=== PATIENT | male | born 1960 | race African-American/Black ===

== ENCOUNTER 2017-01-14 03:24 | Observation (INO) | payer OTHER ==
[~2017-01-14] VITALS: Ht 165.1 cm; Wt 97.3 kg
--- NOTE | ~2017-01-14 | DS ---
Discharge Summary [address] [address] [place]. [address] NAME: GABRIELLA KHAN : 60 STATUS : DIS Elvira PAT#: [id number] AGE: 56 ADM/REG DATE : 01/14/17 MR#: [id number] REPORT SERV DATE: 01/16/17 DICTATED BY: JOSE BORGES DATE: 01/16/17 REPORT STATUS : Draft TRANSCRIBED BY: SERGEY DATE: 01/16/17 ADMISSION DATE: 01/14/2017 DISCHARGE DATE: 01/16/2017 DISCHARGE DIAGNOSES: 1. Acute pancreatitis, urinary tract infection due to Escherichia coli. 2. 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 3. Insulin-treated diabetes mellitus type 2. 4. Obesity. 5. Remote history of cerebrovascular aneurysm. 6. History of cervical stenosis. IMAGING: Gallbladder ultrasound, minimal hepatic and meningioma. Otherwise, negative ultrasound exam of the gallbladder. HISTORY OF PRESENT ILLNESS: For detailed HPI, make reference to Dr. Manfred Gil's dictation on 01/14/2017. In brief, this is a 56-year-old male with medical history of hypertension, cerebrovascular accident, dysarthria due to late effect of CVA, who presented to the emergency department with complaints of worsening nausea, vomiting, and abdominal pain. Vital signs on presentation, blood pressure was 176/94, heart rate was 70, respiratory rate was 20, oxygen saturation 80% on room air. Physical exam noted for epigastric tenderness. No guarding. No rebound. Laboratory data: Lipase 1390, creatinine 1.20, BUN 14, glucose 225. UA, positive leukocyte esterase and wbc present, occasional bacteria noted. Hemoglobin 13.6, hematocrit 39.6, white blood cell 9.2. An assessment of acute pancreatitis and urinary tract infection were made in the ER. The patient was admitted to the Hospitalist Service. HOSPITAL COURSE: 1. Acute pancreatitis. The patient was started on gentle IV fluid, pain control, and clear liquid diet as tolerated. The patient's abdominal pain improved. An ultrasound of the abdomen was done, showed no evidence of gallstones. The patient's liver enzyme was essentially within normal limits. The patient's nausea, vomiting, and abdominal pain continued to improve. The patient's diet was advanced to regular diet and tolerated it without any significant abdominal pain. No nausea or vomiting. The patient was subsequently discharged. Follow up with primary care physician. The definitive etiology of acute pancreatitis not identified in this hospitalization. Serum calcium was essentially normal. Triglyceride was also normal. Possible suspicion includes idiopathic acute pancreatitis versus possible medication-induced (hydrochlorothiazide). Hydrochlorothiazide has now been discontinued. The patient was advised to continue just lisinopril for blood pressure control. Discharge Summary [address] [address] NAME: GABRIELLA KHAN : 60 STATUS : DIS Elvira PAT#: [id number] AGE: 56 ADM/REG DATE : 01/14/17 MR#: [id number] REPORT SERV DATE: 01/16/17 DICTATED BY: JOSE BORGES DATE: 01/16/17 REPORT STATUS : Draft TRANSCRIBED BY: SERGEY DATE: 01/16/17 2. Urinary tract infection. He was started on broad-spectrum IV Rocephin. The patient's urine culture grew E coli, sensitive to ceftriaxone. The patient's IV ceftriaxone was discontinued. The patient was switched to Ceftin 250 mg p.o. b.i.d., to continue as an outpatient. 3. Hypertension. The patient's blood pressure medication was changed during this course of this admission. Hydrochlorothiazide was discontinued. The patient was advised to continue lisinopril for blood pressure control. DISCHARGE MEDICATION: 1. Aspirin 325 mg p.o. daily. 2. Lipitor 80 mg p.o. daily. 3. Ceftin 250 mg p.o. b.i.d., to complete for this treatment. 4. Gabapentin 600 mg p.o. b.i.d. 5. Flexeril 10 mg p.o. t.i.d. 6. Lantus insulin 30 units at bedtime. 7. Lisinopril 20 mg p.o. daily. 8. EpiPen injection. 9. Lispro 10 units with meals. 10.Metformin 500 mg p.o. b.i.d. DISCHARGE DISPOSITION: Home. DISCHARGE FOLLOWUP: Follow up with primary care physician as an outpatient. Greater than 30 minutes was used to prepare this patient's discharge, reconcile medication, advise the patient on discharge plans and followup. MARYO/SERGEY Jose Borges MD / [id number] CC: Jose Borges MD
--- NOTE | ~2017-01-14 | HP ---
History And Physical [facility] [facility] [place]. [address] NAME: GABRIELLA KHAN : 60 STATUS : ADM Elvira PAT#: [id number] AGE: 56 ADM/REG DATE : 01/14/17 MR#: [id number] REPORT SERV DATE: 01/14/17 DICTATED BY: IGNACIA BETANCOURT DATE: 01/14/17 REPORT STATUS : Draft TRANSCRIBED BY: MODL DATE: 01/14/17 DATE OF ADMISSION: 01/14/2017 ATTENDING PHYSICIAN: Dr. Morris. REASON FOR ADMISSION: Pancreatitis. HISTORY OF PRESENT ILLNESS: This is a 56-year-old male, who came to the emergency room with abdominal spasm on the right side. Nurse practitioner, Luciana, also reported he is having some back spasm as did Rico MANNING, who evaluated the patient sequentially in the emergency room. Laboratory tests were drawn and he was found have a lipase of 1390 without any nausea or vomiting. He does not take any alcohol. He does have morbid obesity and he is diabetic. His says his blood sugars been falling recently. The patient is withdrawn and will not answer questions and will not arouse except when stimulated to talk. He has assumed a position in the emergency room. The hospitalist service is asked to observe the patient for evidence of serious illness. PAST MEDICAL HISTORY: He was hospitalized with a stroke. Apparently it is on the right side of the brain. Also Neurology thought he may have a cerebellar stroke as well. 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 Archer last Saturday but did not go to the neurosurgical evaluation. He speaks with a speech impediment as answers mostly for him and he remains withdrawn. HOME MEDICATIONS: His home medications are listed as follows: Aspirin 325 p.o. q.a.m.; Lipitor 80 mg p.o. q.a.m.; EpiPen p.r.n. bee stings; Neurontin 600 mg p.o. b.i.d.; Lantus 50 units subcu at bedtime; Humalog insulin 10 units before each meal; Prinzide 20/12.5 one with breakfast and supper; metformin ER 500 mg p.o. b.i.d.; and Naprosyn 220 mg two p.o. b.i.d. p.r.n. pain. ALLERGIES: INCLUDE WASP AND BEE VENOM; LYRICA; AND MAYONNAISE THAT MAKES HIS MUSCLES CRAMP AND LOCK UP. SOCIAL HISTORY: He has two children from previous marriage. Present and he have been for the last full 12 years (the says she feels like it has been a longer time). He does smoke cigarettes but does not admit to this. He gave up drinking any beer or wine or mixed drink after the stroke. He attends the [employer] [facility] on [facility] near [facility] off [facility]. FAMILY HISTORY: He has two sisters who have diabetes and high blood pressure. Mother had hypertension and cerebral aneurysm. Father of an PR and hypertension. REVIEW OF SYSTEMS: Difficult to obtain from the patient. He complains of spasms in the right upper quadrant of History And Physical [address] [address] NAME: GABRIELLA KHAN : 60 STATUS : ADM Elvria PAT#: [id number] AGE: 56 ADM/REG DATE : 01/14/17 MR#: [id number] REPORT SERV DATE: 01/14/17 DICTATED BY: IGNACIA BETANCOURT DATE: 01/14/17 REPORT STATUS : Draft TRANSCRIBED BY: SERGEY DATE: 01/14/17 his abdomen. No provoking or relieving factors. No melena or hematemesis. He does have a speech impediment and he is unable to explain, defers his complaint to . He has had no diarrhea, nausea or vomiting. He has been having some low blood sugars recently with blood sugars dropping into the 40s. Dropped this morning and he was given some juice to get it back up but he came to the emergency room instead. The remainder of the review of systems is negative. PHYSICAL EXAMINATION: GENERAL: This is a morbidly obese male, in no acute distress. VITAL SIGNS: His blood pressure initially was 176/94 with a heart rate of 70, respiratory rate 20, and oxygen saturation 98%. HEENT: Eyes are mid-position and move conjugately. NECK: No bruit without any JVD. CHEST: Clear to A and P. HEART: Regular S1, S2 with a summation gallop with the patient in the right lateral decubitus position, perhaps a mid systolic click murmur. GI: Abdomen is soft and actually tender to provocation and deep palpation. Bowel sounds are positive. EXTREMITIES: Have no edema. Distal pulses are intact in the dorsalis pedis and posterior tibial. NEUROLOGIC: He does withdraw to plantar stimulation. He appears to be symmetric and equal with motor and sensory function though he is not cooperative with the examination. He moves all four extremities symmetrically. There is no tremor. SKIN: Without rash, ecchymosis, or bruising. LYMPHATICS: There is no adenopathy palpable. LABORATORY DATA: The sodium was 141, potassium 4.0, chloride 105, creatinine 1.24, BUN 14, and glucose is 225. Liver tests were normal. Lipase was 1390. Urinalysis showed 14 white cells per high-powered field, 2 red cells, occasional bacteria, and small leukocyte esterase. His urine specific gravity is 1.13, pH 5. Hemoglobin was 13.6, hematocrit 39.6, white count was 9.2, and platelets were 312,000. No other imaging was done. ASSESSMENT: 1. Probable pancreatitis though symptoms are questionable the patient is cooperative with the examination marginal. We will repeat the amylase and lipase in the morning after holding the patient n.p.o. at night. 2. Diabetes type 2 on insulin with a recent history of hypoglycemia. 3. Hypoglycemia earlier today. 4. Obesity. 5. History of stroke 2 months ago with hospitalization here; possible cerebellar stroke and right-sided brainstem with some left-sided sequelae. He is still in physical therapy last physical therapy according to his . 6. History of cerebral aneurysm. He has seen Dr. Archer at Neurosurgery, had an History And Physical [address] [address] NAME: GABRIELLA KHAN : 60 STATUS : ADM Elvira PAT#: [id number] AGE: 56 ADM/REG DATE : 01/14/17 MR#: [id number] REPORT SERV DATE: 01/14/17 DICTATED BY: IGNACIA BETANCOURT DATE: 01/14/17 REPORT STATUS : Draft TRANSCRIBED BY: SERGEY DATE: 01/14/17 appointment on Saturday. 7. Cervical stenosis. Full extent is unclear and does not appear to be related to current complaints. 8. Odd affect with question of psychiatric overlay. PLAN: IV fluid, n.p.o. except for ice chips. Echocardiogram shows normal left ventricular function with an ejection fraction of 55 to 60% with dilated left atrium. There is some diastolic dysfunction with elevated filling pressures and aortic sclerosis without stenosis. He will follow up with Dr. Archer after this hospitalization as well as [facility]. COOKIE/SERGEY Ignacia Betancourt M.D. / [id number] CC: Sy Li MD
[~2017-01-14 03:24] MED LIST: ASAEC PO; AUG875 PO; FLEX PO; GLUCOPHXR PO; HALF81 PO; HUMALOGPEN SC; LANTUS; LANTUS SC; LIPITOR80 MG PO; MOBIC15 MG PO; NEUR400 PO; NOVOLOG; TRIAMCINOLONE O80 GM TOP; ZESTORETIC PO; ZOCOR40 PO; [UNRECOGNIZED DRUG - CODE] IM; [UNRECOGNIZED DRUG - REMARK]
[2017-01-14 06:52] LABS: BASOPHILS 0.3 %; BASOPHILS ABSOLUTE 0.03 10/3/uL (0.0-0.16); EOSINOPHILS 4.1 %; EOSINOPHILS ABSOLUTE 0.38 10/3/uL (0.0-0.53); HEMATOCRIT 39.6 % (40.0-51.0); HEMOGLOBIN 13.3 g/dL (13.6-17.8); IMMATURE GRANULOCYTES 0.2 %; IMMATURE GRANULOCYTES ABSOLUTE 0.02 10/3/uL (0.0-0.11); LYMPHOCYTES 44.5 %; LYMPHOCYTES ABSOLUTE 4.11 10/3/uL (0.67-4.30); MEAN CORPUS HGB CONC 33.6 g/dL (32.0-36.0); MEAN CORPUSCULAR HEMOGLOB 28.4 pg (26.0-34.0); MEAN CORPUSCULAR VOLUME 84.4 fL (80-100); MEAN PLATELET VOLUME 9.6 fL (9.2-13.0); MONOCYTES 6.2 %; MONOCYTES ABSOLUTE 0.57 10/3/uL (0.21-1.20); NEUTROPHILS 44.7 %; NEUTROPHILS ABSOLUTE 4.12 10/3/uL (2.02-8.40); PLATELET COUNT 312 10/3/uL (150-400); RBC DISTRIBUTION WIDTH 13.7 % (12.0-16.0); RED CELL COUNT 4.69 10/6/uL (4.7-6.1); WHITE BLOOD CELLS 9.2 10/3/uL (4.5-10.5)
[2017-01-14 06:54] LABS: MANUAL DIFF NO %
[2017-01-14 06:59] LABS: ASCORBIC ACID (UR NOT ORDER) NEG (NEG); BILIRUBIN, URINE NEGATIVE (NEG); ER URINALYSIS TAT 0 Hrs 11 Mins; KETONE, URINE NEGATIVE (NEG); LEUKOCYTE ESTERASE(NOT OR SMALL (NEG); NITRITE (URINE) NEG (NEG); WBC (NOT ORDERED) (RFLEX) 14 (0-5)
[2017-01-14 07:09] LABS: ALBUMIN 3.6 G/DL (3.5-5.0); CALCIUM, SERUM 9.3 MG/DL (8.5-10.4); CHLORIDE, SERUM 105 MMOL/L (96-112); CO2 (CARBON DIOXIDE) 29 MMOL/L (24-34); CREATININE 1.24 MG/DL (0.70-1.30); GFR AFRICAN AMERICAN 75 ML/MIN (>=60); GFR NON AFRICAN AMERICAN 65 ML/MIN (>=60); GLOBULIN 3.6 G/DL (2.5-4.1); POTASSIUM, SERUM 4.1 MMOL/L (3.5-5.3); SGOT(AST) 11 U/L (5-40); SGPT(ALT) 33 U/L (5-65); SODIUM, SERUM 141 MMOL/L (135-148); TOTAL BILIRUBIN 0.5 MG/DL (0-1.2); TOTAL PROTEIN 7.2 G/DL (6.0-8.5)
[2017-01-14 07:10] LABS: ALKALINE PHOSPHATASE 111 U/L (45-117); BUN (BLOOD UREA NITROGEN) 14 MG/DL (6-23); GLUCOSE, SERUM 225 MG/DL (60-99)
[2017-01-14] MEDS ORDERED: LIPITOR80 MG PO (08:52)
[2017-01-14] MEDS ORDERED: FORTAMET500 MG PO (08:53)
[2017-01-14] MEDS ORDERED: PRINZIDE1 TA1 PO (08:53)
[2017-01-14] MEDS ORDERED: NEUR600 PO (08:53)
[2017-01-14] MEDS ORDERED: HUMALOG SC (08:53)
[2017-01-14] MEDS ORDERED: LANTUS SC (08:54)
[2017-01-14] MEDS ORDERED: ASA5GR PO (08:55)
[2017-01-14] MEDS ORDERED: ALEVE220 MG PO (08:56)
[2017-01-15 04:51] LABS: A/G RATIO 1.1 (0.7-1.9); ALBUMIN 3.2 G/DL (3.5-5.0); ALKALINE PHOSPHATASE 108 U/L (45-117); CALCIUM, SERUM 8.7 MG/DL (8.5-10.4); CHLORIDE, SERUM 111 MMOL/L (96-112); CO2 (CARBON DIOXIDE) 28 MMOL/L (24-34); CREATININE 0.87 MG/DL (0.70-1.30); GFR AFRICAN AMERICAN 112 ML/MIN (>=60); GFR NON AFRICAN AMERICAN 96 ML/MIN (>=60); POTASSIUM, SERUM 3.7 MMOL/L (3.5-5.3); SGOT(AST) 11 U/L (5-40); SGPT(ALT) 25 U/L (5-65); SODIUM, SERUM 144 MMOL/L (135-148); TOTAL BILIRUBIN 0.6 MG/DL (0-1.2); TOTAL PROTEIN 6.2 G/DL (6.0-8.5)
[2017-01-15 04:52] LABS: BUN (BLOOD UREA NITROGEN) 10 MG/DL (6-23); GLUCOSE, SERUM 63 MG/DL (60-99)
[2017-01-16 05:19] LABS: BASOPHILS 0.3 %; BASOPHILS ABSOLUTE 0.02 10/3/uL (0.0-0.16); EOSINOPHILS 5.1 %; EOSINOPHILS ABSOLUTE 0.37 10/3/uL (0.0-0.53); HEMATOCRIT 37.8 % (40.0-51.0); HEMOGLOBIN 12.6 g/dL (13.6-17.8); IMMATURE GRANULOCYTES 0.1 %; IMMATURE GRANULOCYTES ABSOLUTE 0.01 10/3/uL (0.0-0.11); LYMPHOCYTES 53.6 %; MEAN CORPUS HGB CONC 33.3 g/dL (32.0-36.0); MEAN CORPUSCULAR HEMOGLOB 28.6 pg (26.0-34.0); MEAN CORPUSCULAR VOLUME 85.9 fL (80-100); MEAN PLATELET VOLUME 9.8 fL (9.2-13.0); MONOCYTES 5.9 %; MONOCYTES ABSOLUTE 0.43 10/3/uL (0.21-1.20); NEUTROPHILS ABSOLUTE 2.54 10/3/uL (2.02-8.40); PLATELET COUNT 306 10/3/uL (150-400); RBC DISTRIBUTION WIDTH 13.5 % (12.0-16.0); WHITE BLOOD CELLS 7.3 10/3/uL (4.5-10.5)
[2017-01-16 05:20] LABS: MANUAL DIFF NO %
[2017-01-16 05:31] LABS: BUN (BLOOD UREA NITROGEN) 13 MG/DL (6-23); CALCIUM, SERUM 8.9 MG/DL (8.5-10.4); CHLORIDE, SERUM 109 MMOL/L (96-112); CO2 (CARBON DIOXIDE) 29 MMOL/L (24-34); CREATININE 1.09 MG/DL (0.70-1.30); GFR AFRICAN AMERICAN 87 ML/MIN (>=60); GFR NON AFRICAN AMERICAN 75 ML/MIN (>=60); GLUCOSE, SERUM 105 MG/DL (60-99); PHOSPHORUS, SERUM 4.2 MG/DL (2.5-4.5); POTASSIUM, SERUM 4.3 MMOL/L (3.5-5.3); SODIUM, SERUM 144 MMOL/L (135-148)
[2017-01-16] MEDS ORDERED: FLEX PO (15:59)
[2017-01-16] MEDS ORDERED: PRIN20 PO (16:00)
[2017-01-16] MEDS ORDERED: NORCO1 TA1 PO (16:01)
[2017-01-16] MEDS ORDERED: CEFT2 PO (16:48)
== END 2017-01-16 16:35 | disposition home or self-care (01) ==
LOC: ER 03:24 → CDU2 08:38 → CDU1 08:38 → CDU2 08:47
PROVIDERS: Hospitalist; Internal Medicine; Nurse Practitioner Acute Care
DX: K85.90 Acute pancreatitis without necrosis or infection, unspecified (principal); N39.0 Urinary tract infection, site not specified; B96.20 Unspecified Escherichia coli [E. coli] as the cause of diseases classified elsewhere; E11.9 Type 2 diabetes mellitus without complications; E11.649 Type 2 diabetes mellitus with hypoglycemia without coma; I69.90 Unspecified sequelae of unspecified cerebrovascular disease; E78.5 Hyperlipidemia, unspecified; M48.02 Spinal stenosis, cervical region; I10 Essential (primary) hypertension; E66.9 Obesity, unspecified; Z79.82 Long term (current) use of aspirin; Z79.4 Long term (current) use of insulin; Z79.899 Other long term (current) drug therapy; Z88.8 Allergy status to other drugs, medicaments and biological substances; F17.210 Nicotine dependence, cigarettes, uncomplicated
CPT/HCPCS: 76705; 80048; 80053; 81001; 82150; 82962; 83690; 83735; 84100; 85025; 87077; 87086; 87186; 96372; 96374; 96375; 96376; 99284; A9270-GY; G0378; J1170; J1885; J2405; J2800; J3480